=== PATIENT | male | born 1955 | race Caucasian/White ===

== ENCOUNTER 2016-08-10 06:38 | Day surgery (SDC) | payer OTHER ==
[~2016-08-10] VITALS: Ht 190.5 cm; Wt 76.9 kg
[2016-08-10 07:27] VITALS: Ht 190.5 cm; Wt 76.9 kg
[2016-08-10 07:44] VITALS: BP 109/74; PULSE 51; RESP 18
[2016-08-10] MEDS ORDERED: omeprazole (07:45)
[2016-08-10] MEDS ORDERED: zyrtec (07:45)
[2016-08-10] MEDS ORDERED: LIDOCAINE 2% (SDV) 5 ML INJ ONE (08:04)
[2016-08-10] MEDS ORDERED: PROPOFOL 60 ML ONE (08:04)
[2016-08-10 09:32] VITALS: BP 128/85; PULSE 50; RESP 18
--- NOTE | 2016-08-10 10:04 | GILP ---
DATE OF PROCEDURE: PROCEDURE PERFORMED: EGD with biopsy and colonoscopy. INDICATION: A 61-year-old male undergoing this procedure for colon cancer screening and also for ch ronic reflux. The risk of the procedure, related and unrelated complications, anesthetic risks, alt ernatives discussed and informed consent was obtained. DESCRIPTION OF PROCEDURE: The patient was brought to the GI lab, sedated by the anesthesiologist, Kaila Mercado. After optimum sedation, scope was passed with much ease into esophagus which was grossly within normal limits. In the distal part a couple of erosions identified consistent with the diagn osis of LA class B, Z line was normal, it was at 38 cm. Stomach mucosa revealed gastritis with few erosions. Biopsy taken to rule out H. pylori infection. Duodenum, first and second part was within normal limits. Retroversion also was normal. Ampulla was normal. Scope was straightened out and removed with good patient tolerance. IMPRESSION 1. Erosive esophagitis, LA class B. 2. Erosive gastritis. 3. Normal duodenum. 4. Normal ampulla. Plan is to review histopathology in the interim, continue PPI. COLONOSCOPY REPORT: The patient was turned around, scope was passed with much ease into rectum, adv anced through sigmoid, descending, transverse colon all the way into cecum. Appendiceal orifice [place] ntified. IC valve identified. The colon was redundant. While coming out, mucosa thoroughly inspec misael, grossly it was normal. No polyps, no diverticula seen. Patient had small hemorrhoids. IMPRESSION: 1. Normal findings all the way into cecum. 2. Small hemorrhoids. 3. Redundant colon. 4. Clarity was good. 5. Cleanliness was good to adequate. PLAN: Stay on a high fiber diet. Dictated By: BEENA HAYWARD/NTS Conf#: [id number] DID#: [id number] CC: ROBERTO MEDINA MD;*EndCC*
== END 2016-08-10 09:44 | disposition home or self-care (01) ==
LOC: GIL 06:38
PROVIDERS: ATTEND Internal Medicine Gastroenterology
DX: Z12.11 Encounter for screening for malignant neoplasm of colon (principal); K29.50 Unspecified chronic gastritis without bleeding; K20.8 Other esophagitis; K64.9 Unspecified hemorrhoids
CPT/HCPCS: 43239; 45378; 88305; 88312; Z7610

== ENCOUNTER → 2017-02-04 | Outpatient (CLI) | payer OTHER ==
[~2017-02-04] MED LIST: omeprazole; zyrtec
== END | disposition home or self-care (01) ==
LOC: PUL 08:58
PROVIDERS: ATTEND Internal Medicine
DX: R05 Cough (principal)
CPT/HCPCS: 94010; 94726; 94729